=== PATIENT | female | born 1990 | race Caucasian/White ===

== ENCOUNTER → 2020-05-20 11:52 | Outpatient (CLI) | payer OTHER, SELFPAY ==
[2020-05-20 12:37] LABS: Add Manual Diff / Slide Review NO; Basophils Absolute Auto 100 /uL (0-100); Basophils Percent Auto 0.6 % (0-2); Eosinophils Absolute Auto 0 /uL (0-450); Eosinophils Percent Auto 0.5 % (2-4); Hematocrit 39.8 % (36-46); Hemoglobin 13.6 g/dL (12.0-16.0); Lymphocytes Absolute Auto 2400 /uL (1100-4500); Lymphocytes Percent Auto 25.1 % (25-40); Mean Corpuscular HGB Conc 34.1 % (30-36); Mean Corpuscular Hemoglobin 28.1 PG (26-34); Mean Corpuscular Volume 82.6 fL (80-100); Monocytes Absolute Auto 600 /uL (0-900); Monocytes Percent Auto 5.8 % (3-14); Neutrophils Absolute Auto 6400 /uL (1500-7000); Platelet Count 278 X10^3/uL (150-400); Red Blood Cell Count 4.82 X10^6/uL (4.0-5.2); Red Cell Distribution Width 13.7 % (11.6-14.8); White Blood Cell Count 9.4 X10^3/uL (4.5-11.0)
[2020-05-20 13:10] LABS: Hemoglobin A1C% w Est Avg Glu 5.5 % (4.0-6.0)
[2020-05-20 13:13] LABS: Glucose 122 mg/dL (70-100)
[2020-05-20 13:55] LABS: Appearance Urine UA CLEAR; Bilirubin Urine UA NEGATIVE (NEGATIVE); Color Urine UA YELLOW; Glucose Urine UA NEGATIVE (Negative); Ketones Urine UA NEGATIVE (NEGATIVE); Leukocyte Esterase Urine UA NEGATIVE (NEGATIVE); Nitrite Urine UA NEGATIVE (Negative); Occult Blood Urine UA 1+ (Negative); Protein Urine UA NEGATIVE (Negative); Specific Gravity Urine UA 1.025 (1.000-1.035); Urobilinogen Urine UA 0.2 E.U./dL (0.2)
[2020-05-20 14:29] LABS: Bacteria Urine Moderate (10-30); RBC Urine 1-5/HPF (0-5/HPF); Squamous Epithelial Cell Urine 1-5 /HPF (0-5/HPF); WBC Urine 0-1/HPF (0-5/HPF)
[2020-05-20 16:00] LABS: Hepatitis B Surface Antigen NEGATIVE s/c (NEGATIVE); Rubella Antibody IgG 10.6 IU/mL (>15)
[2020-05-20 16:14] LABS: HIV 1 & 2 Ab/Ag 4th Gen Combo NEGATIVE (NEGATIVE); Hep C Virus Ab w/Reflex Quant NEGATIVE s/c (NEGATIVE)
[2020-05-21 07:10] LABS: RPR Screen Non Reactive (Non Reactive)
[2020-05-21 14:22] LABS: Varicella IgG Antibody <135 index (Immune >165)
== END ==
PROVIDERS: Referring Provider Obstetrics & Gynecology; Visit Provider Obstetrics & Gynecology
DX: Z34.81 Encounter for supervision of other normal pregnancy, first trimester (principal)
CPT/HCPCS: 36415; 80055; 81003; 81015; 82947; 83036; 86787; 86803; 86850; 86900; 86901; 87086; 87389

== ENCOUNTER → 2020-07-19 08:53 | Outpatient (CLI) | payer OTHER, SELFPAY ==
[2020-07-27 19:06] LABS: AFP, Serum 22.4 ng/mL (.); Estriol, Free 1.09 ng/mL (.); Inhibin A, MoM 0.88 (.); Maternal Ethnicity Caucasian (.); Maternal Weight 388 lbs (.); Number of Fetuses No (.); OSBR Risk 1 IN 10000 (.); Results Report (.); Test Results *Screen Negative* (.); hCG, MoM 0.41 (.); hCG, Serum 6247 mIU/mL (.)
== END ==
PROVIDERS: Referring Provider Obstetrics & Gynecology; Visit Provider Obstetrics & Gynecology
DX: Z34.82 Encounter for supervision of other normal pregnancy, second trimester (principal); Z3A.19 19 weeks gestation of pregnancy
CPT/HCPCS: 36415; 82105; 82677; 84702; 86336

== ENCOUNTER → 2020-07-23 14:40 | Outpatient (CLI) | payer OTHER, SELFPAY ==
--- NOTE | 2020-07-23 14:40 | DI.US.S_ITS ---
PROCEDURE: US OB >= 14 WEEKS FETUS INDICATIONS: ANATOMY OUTSIDE/PRIOR DATING DATA: Last menstrual period (LMP): 03/06/2020 . LMP-based estimated date of delivery (JOCELYNE): 12/11/2020 . First dating scan (date and location): 05/20/2020[facility] . Estimated date of delivery (JOCELYNE) from first dating scan: 12/14/2020 . TECHNIQUE: Real-time scanning was performed of the fetus, with image documentation and biometric measurements. COMPARISON: [facility], US, OB >= 14 WEEKS FETUS, 07/19/2020, 8:43. FINDINGS: General: A single living intrauterine gestation is present. Presentation: Breech. Placenta: Placental position is posterior , without previa. Amniotic fluid index: 7.6 cm, normal range is 5-24 cm. heart rate: 149 beats per minute. Maternal cervical canal: 3.9 cm long. Normal lower limit is 2.5 cm. biometrics: Biparietal diameter: 4.2 centimeters = 18 weeks 4 days Head circumference: 16.0 centimeters = 18 weeks 6 days Abdominal circumference: 13.9 centimeters = 19 weeks 2 days Femur length: 3.3 centimeters = 20 weeks 1 day Estimated gestational age from initial scan: not applicable. Composite gestational age from present scan: 19 weeks 2 days Estimated weight and percentile: 302 grams; 56th percentile Measurement variability for biometric dating: +/- 7 days from 14 weeks to 15 weeks 6 days gestation, +/- 10 days from 16 weeks to 21 weeks 6 days gestation, +/- 2 weeks from 22 weeks to 27 weeks 6 days gestation, +/- 3 weeks for 28 weeks gestation or later. weight reference: 4500 g or EFW >90/95% is considered macrosomia or large for gestational age. EFW <10% is small for gestational age. EFW 5% or less is considered intra-uterine growth restriction. Anatomic survey: Neuro: Ventricles are non-dilated at less than 10 mm. Cisterna magna is normal at 3-11 mm. Cerebellum is normal in size and morphology. Nuchal skin fold: Normal at less than 6 mm between 14-21 weeks gestational age. Face: Not well seen Spine: Lumbar and sacral spine is not well seen. The thoracic spine is normal. Heart: Not well seen Diaphragm: Not well seen Stomach: Left-sided stomach is present. Kidneys: No hydronephrosis. Normal is less than 5 mm in 2nd trimester, less than 7 mm in 3rd trimester. Cord: Not well seen Bladder: Not well seen Extremities: Not well seen IMPRESSION: 1. Single live intrauterine . 2. BRITTANY = 7.6 centimeters. 3. Multiple areas of anatomic survey were not well evaluated due to lie and maternal body habitus. Dictated by: Herve Farmer M.D. on 07/24/2020 at 10:42 Approved by: Herve Farmer M.D. on 07/24/2020 at 10:50
== END ==
PROVIDERS: Referring Provider Obstetrics & Gynecology; Visit Provider Obstetrics & Gynecology
DX: Z34.82 Encounter for supervision of other normal pregnancy, second trimester (principal); Z3A.19 19 weeks gestation of pregnancy
CPT/HCPCS: 76811

== ENCOUNTER → 2020-09-20 14:29 | Outpatient (CLI) | payer OTHER, SELFPAY ==
[2020-09-20 17:50] LABS: Hemoglobin 12.2 g/dL (12.0-16.0)
[2020-09-20 18:42] LABS: GTT (PREG) 1 Hour PP 50gm Dose 154 mg/dL (76-139)
== END ==
PROVIDERS: Referring Provider Obstetrics & Gynecology; Visit Provider Obstetrics & Gynecology
DX: Z34.82 Encounter for supervision of other normal pregnancy, second trimester (principal); Z3A.26 26 weeks gestation of pregnancy
CPT/HCPCS: 36415; 82950; 85014; 85018

== ENCOUNTER → 2020-10-01 06:57 | Outpatient (CLI) | payer OTHER, SELFPAY ==
[2020-10-01 08:56] LABS: Glucose 1 Hour 122 mg/dL (70-170)
[2020-10-01 08:57] LABS: Glucose Fasting 93 mg/dL (70-100)
[2020-10-01 09:42] LABS: Glucose 2 Hour 147 mg/dL (70-140)
[2020-10-01 10:12] LABS: Glucose Tol Interpretation INTERPRETATION
[2020-10-01 11:59] LABS: Glucose 3 Hour 141 mg/dL (70-115)
== END ==
PROVIDERS: Referring Provider Obstetrics & Gynecology; Visit Provider Obstetrics & Gynecology
DX: Z34.90 Encounter for supervision of normal pregnancy, unspecified, unspecified trimester (principal); R73.09 Other abnormal glucose
CPT/HCPCS: 36415; 82951; 82952

== ENCOUNTER → 2020-11-01 15:25 | Outpatient (CLI) | payer OTHER, SELFPAY ==
--- NOTE | 2020-11-01 | DI.US.S_ITS ---
PROCEDURE: US OB LIMITED INDICATIONS: GROWTH AND AMNIOTIC FLUID OUTSIDE/PRIOR DATING DATA: Last menstrual period (LMP): 03/06/2020. LMP-based estimated date of delivery (JOCELYNE): - . First dating scan (date and location): 05/20/2020 . Estimated date of delivery (JOCELYNE) from first dating scan: 12/14/2020 . TECHNIQUE: Real-time scanning was performed of the fetus, with image documentation and biometric measurements. Endovaginal scanning: No COMPARISON: Outside Facility, [facility], US OB FOLLOW UP, 10/22/2020, 9:59. FINDINGS: General: A single living intrauterine gestation is present. Presentation: Vertex. Placenta: Placental position is posterior , and the cervix is not well seen. Amniotic fluid index: 11.0 cm, normal range is 5-24 cm. heart rate: 160 beats per minute. biometrics: Biparietal diameter: 35 weeks Head circumference: 35 weeks 5 days Abdominal circumference: 37 weeks 5 days Femur length: 33 weeks 4 days Estimated gestational age from initial scan: 33 weeks 6 days Composite gestational age from present scan: 35 weeks 4 days Estimated weight and percentile: 2875 g, 96 percentile Measurement variability for biometric dating: +/- 7 days from 14 weeks to 15 weeks 6 days gestation, +/- 10 days from 16 weeks to 21 weeks 6 days gestation, +/- 2 weeks from 22 weeks to 27 weeks 6 days gestation, +/- 3 weeks for 28 weeks gestation or later. weight reference: 4500 g or EFW >90/95% is considered macrosomia or large for gestational age. EFW <10% is small for gestational age. EFW 5% or less is considered intra-uterine growth restriction. Other: Not applicable. IMPRESSION: Single living IUP redemonstrated and interval growth is greater than expected with estimated weight at the 96 percentile. Macrosomia cannot be excluded and close clinical correlation and follow-up is recommended. Dictated by: Fran CEDENO Interpreted: Bing Almonte MD on 11/01/2020 at 16:57 Transcribed by: ISAIAH on 11/01/2020 at 16:59 Approved by: Bing Almonte M.D. on 11/01/2020 at 17:11
== END ==
PROVIDERS: Referring Provider Obstetrics & Gynecology; Visit Provider Obstetrics & Gynecology
DX: Z36.89 Encounter for other specified antenatal screening (principal); Z3A.35 35 weeks gestation of pregnancy
CPT/HCPCS: 76815

== ENCOUNTER 2020-11-18 17:29 | Outpatient (CLI) | payer OTHER, SELFPAY | END 2020-11-18 18:30 | disposition home or self-care (01) | LOC: OB 11-23 10:44 | PROVIDERS: Referring Provider Obstetrics & Gynecology; Visit Provider Obstetrics & Gynecology | DX: O24.415 Gestational diabetes mellitus in pregnancy, controlled by oral hypoglycemic drugs (principal); Z3A.36 36 weeks gestation of pregnancy | CPT/HCPCS: 59025; 87653; G0378; G0379 ==

== ENCOUNTER → 2021-10-14 15:08 | Outpatient (CLI) | payer OTHER, SELFPAY ==
--- NOTE | 2021-10-14 15:08 | DI.US.S_ITS ---
PROCEDURE: US PELVIC COMPLETE INDICATIONS: Pelvic pain TECHNIQUE: Real-time scanning was performed of the pelvic organs, with image documentation. Additional endovaginal scanning was necessary due to incomplete visualization of the adnexal and endometrial structures by transabdominal scanning. COMPARISON: None. FINDINGS: Uterus: Uterus is anteverted and normal in size at 8.4 x 3.7 x 4.6 cm. The myometrium is homogeneous. The endometrium measures 3 mm combined thickness. Intrauterine device is suboptimally seen, but appears to be located in the lower uterine segment. Ovaries: The ovaries are not visualized. No adnexal mass is seen. Other: No pathologic free abdominal or pelvic fluid. IMPRESSION: 1. Intrauterine device is poorly visualized, but appears to be located within the lower uterine segment. 2. Ovaries are not visualized bilaterally. We strive to produce accurate, complete, and clear reports of imaging services. To assist us in improving patient care, this report was composed using standard report templates and voice recognition software. Therefore, it may contain abnormal punctuation, insertions and/or omissions. Occasional wrong-word or sound-alike substitutions may occur. Though we review the report and make efforts to correct it, we do recommend that the report be read carefully in proper context to recognize any text inaccuracies. Dictated by: Christiano Perales M.D. on 10/14/2021 at 16:43 Approved by: Christiano Perales M.D. on 10/14/2021 at 16:46
== END ==
PROVIDERS: Referring Provider Obstetrics & Gynecology; Visit Provider Obstetrics & Gynecology
DX: R10.2 Pelvic and perineal pain (principal); Z97.5 Presence of (intrauterine) contraceptive device
CPT/HCPCS: 76830; 76856